=== PATIENT | male | born 1975 | race Hispanic/Latino ===

== ENCOUNTER 2021-01-29 13:37 | Outpatient (CLI) | payer OTHER, SELFPAY ==
--- NOTE | ~2021-01-29 | XR_ITS ---
EXAMINATION: XR hand LT 2V INDICATION: Left hand pain TECHNIQUE: Two views of the left hand are obtained. COMPARISON: None available FINDINGS: There is mild osteoarthritis at the first carpometacarpal joint. No fracture is identified. The soft tissues are unremarkable. IMPRESSION: 1. Mild osteoarthritis without acute findings. Reviewed, dictated and finalized at location B. ER GRIND TOOL TECHNICIAN
--- NOTE | ~2021-01-29 | XR_ITS ---
EXAMINATION: XR hand RT 2V INDICATION: Right hand pain TECHNIQUE: Two views of the right hand are obtained. COMPARISON: None available FINDINGS: There is mild osteoarthritis in the carpals at the first carpometacarpal joint. The soft ti ssues are unremarkable. There is no fracture. IMPRESSION: 1. Mild osteoarthritis at the wrist that acute findings. Reviewed, dictated and finalized at location B. INSULATOR HELPER
--- NOTE | ~2021-01-29 | XR_ITS ---
XR knee RT 3V 01/29/2021 14:00 Indication: Right knee pain Procedure: 3 views right knee Comparison: No prior studies for comparison. Findings: There is moderate osteoarthritis of the knee. There is chondrocalcinosis. There are degener ative subchondral cyst at the tibial plateaus. Impression: 1: Moderate osteoarthritis of the right knee. Reviewed, dictated and finalized at location A. NG MAKER Impression: 1: Moderate osteoarthritis of the right knee.
== END 2021-01-29 13:38 | disposition home or self-care (01) ==
PROVIDERS: PCP Family Medicine; Visit Provider Nurse Practitioner Family
DX: M79.644 Pain in right finger(s) (principal); M79.645 Pain in left finger(s); M25.561 Pain in right knee; M19.042 Primary osteoarthritis, left hand; M19.041 Primary osteoarthritis, right hand; M17.11 Unilateral primary osteoarthritis, right knee
CPT/HCPCS: 73120; 73562

== ENCOUNTER 2023-01-21 07:00 | Outpatient (NON) | payer OTHER, SELFPAY | END 2023-01-21 07:01 | disposition home or self-care (01) | PROVIDERS: PCP Family Medicine; Visit Provider Plastic Surgery | DX: L98.0 Pyogenic granuloma (principal) | CPT/HCPCS: 88304 ==

== ENCOUNTER 2023-01-21 09:40 | Day surgery (SDC) | payer OTHER, SELFPAY ==
[2023-01-19 11:45] VITALS: BMI 38.7
[2023-01-19 13:38] VITALS: BMI 38.8
[2023-01-21 10:49] VITALS: BP 145/102; PULSE 50; RESP 20; TEMP 36.9; O2SAT 100
--- NOTE | 2023-01-21 10:51 | WPDANESEPPF ---
Anes - Initial Pre Proc Eval Procedure: Operation Date: 01/21/23 12:00 Proposed Procedures p Right Palmar Mass Excision - Arjun Galindo MD Date/Time: 01/21/23 10:51 Surgeon: Arjun Galindo MD Pre Op Diagnosis: Pyogenic Granuloma Patient Data Age: 47 Gender: M Height: 1.91 m Weight: 142.7 kg Last Vital Signs Temp 36.9 C 01/21/23 10:49 Pulse 50 L 01/21/23 10:49 Resp 20 01/21/23 10:49 BP 145/102 H 01/21/23 10:49 Pulse Ox 100 01/21/23 10:49 O2 Del Method Room Air 01/21/23 10:49 Allergies Allergy/AdvReac Type Severity Reaction Status Date / Time No Known Allergies Allergy Verified 01/21/23 10:40 Home Medications Medication Instructions Recorded Confirmed Type No Home Medications 01/19/23 01/21/23 History Patient hx anesthesia problems: none Family hx anesthesia problems: none Results Review: All pre-operative results and documents have been reviewed as part of the pre-operative evaluation. FORMERLY [facility], [facility] Past Medical History Medical History IFG (impaired fasting glucose) Family History Family History Father Hypertension Social History Social History (Updated 01/05/23 @ 13:46 by Orin Villarreal MA) Smoking status: Never smoker Second hand tobacco smoke exposure: No Alcohol intake: current Alcohol use details: socially Substance use: never Substance use type: does not use Lack of Transportation: No Lack of Food: Never True Current Housing: I Have Housing Concerned About Future Housing: No Difficulty Paying Gas/Electric Bills: No Difficulty Paying for Meds: No Currently Unemployed: No Education: Bachelor's Degree Difficulty w/ Childcare or Family Care: No Living arrangements: with family Occupation/Education: occupation Gender identity (if verbalized by the patient): Male Spiritual care concerns: No Anes - Eval Final PreProcedure Day of Procedure 01/21/23 10:51 Patient weight: obese Heart: regular rate and rhythm Lungs: clear to auscultation Airway: Mallampati scale class II Neurological: alert and oriented Last oral intake: >/= 8 hours ASA classification: II Emergent: no Anesthetic plan: proceed Anesthesia type and monitoring: general GIVS and standard monitoring Results Review: All pre-operative results and documents have been reviewed as part of the pre-operative evaluation. Informed Consent: The patient's anesthetic plan and its attendant risks and benefits were discussed with the patient/family/POA. Questions were solicited and answers provided to the satisfaction of the patient/family/POA.
[2023-01-21] MEDS: LACTATED RINGERS 1,000 ML 30 ML IV CONT (11:19)
--- NOTE | 2023-01-21 11:37 | WPDHPUPDATE1 ---
History and Physical Update Update Date/Time: 01/21/23 11:37 Patient seen and examined in pre-operative holding area. No interval change in medical history or symptoms. Continues to desire to proceed with right palmar mass excision . Reviewed procedure, post-op expectations and risks including but not limited to bleeding, infection, injury to tendon/nerve/vessel, decreased hand function, recurrence, stiffness, RSD, no change or worsening of symptoms. Patient stated understanding and signed the consent form wishing to proceed.
--- NOTE | 2023-01-21 11:38 | W.PM.PROC2 ---
Procedure Note - Detailed Date of Procedure 01/21/23 Pre-op Diagnosis right palmar mass Post-op Diagnosis Same Procedure Performed excision right palmar mass Surgeon Arjun Galindo MD Anesthesia MAC Description of Procedure Pt. seen and examined in pre-op area. marked and consent signed. Taken back to OR on stretcher in supine position. Time out performed with anesthesia, surgeon and staff agreeing on patient's name, site and surgery to be performed. antibiotics were given IV. a tourniquet was placed on the right upper extremity. After anesthesia administered sedation I injected 6cc 1%Lido with epi and 0.5%marcaine plain for local. The right upper extremity was prepped and draped in the ususal sterile faschion. I exanguinated the Right upper extremity proximal to the mass with an esmarch and tourniquet inflated to 250mmHg. I proceeded with making an elliptical incision around the affected skin and open wound overlying the mass in addition to excess skin for dog ears and to achieve flat closure. This was done through skin and dermis with a 15 blade scalpel. I used littler scissors to dissect through the subq tissue and palmar fascia dissection aroud the mass that appeared to originate below the palmar fascia. Bipolar cautery was used to transect the mass at its base though no major feeding vessel was identified. I irrigated with normal saline, undermined the skin flaps to minimize tension at wound edges and closed the incision with 4-0 chromic. A dressing of xeroform, 4x4, geovanny, and bryon was applied after the tourniquet was let down noting the hand was warm and well perfused. The patient was awaken from anesthesia and transferred to the recovery room in stable condition. Compications: none EBL: 2cc Dispostion: patient tolerated well and will be discharged home in stable condition [facility] [place] Surgery - Charge Forward: Surgery Billing ([id number])
[2023-01-21] MEDS: LIDOCAINE HCL 1% LOCAL INJ 20 ML VIAL 5 ML INFILTRATE (11:54)
[2023-01-21] MEDS: BUPivacaine HCL 0.5% 10 ML AMP INFILTRATE (11:54)
[2023-01-21] MEDS: ceFAZolin SODIUM 3 GM/30 ML SW SYRINGE IV PUSH (11:54)
[2023-01-21 12:19] VITALS: BP 120/63; PULSE 49; RESP 18; O2SAT 96
[2023-01-21 12:30] VITALS: BP 122/79; PULSE 47; RESP 18; O2SAT 96
[2023-01-21 13:00] VITALS: BP 127/78; PULSE 48; RESP 20; O2SAT 100
== END 2023-01-21 13:20 | disposition home or self-care (01) ==
PROVIDERS: PCP Family Medicine; Visit Provider Plastic Surgery
PROC: (CPT 26111; principal; 2023-01-21 12:00)
DX: D49.2 Neoplasm of unspecified behavior of bone, soft tissue, and skin (principal)
CPT/HCPCS: 26111

== ENCOUNTER 2024-01-21 15:03 | Outpatient (CLI) | payer OTHER, SELFPAY ==
--- NOTE | ~2024-01-21 | MR_ITS ---
MRI of the right foot CLINICAL HISTORY: Flexion deformity TECHNIQUE: Axial proton-density, STIR, and proton-density fat-sat images, sagittal T1-weighted and ST IR images, and coronal T1-weighted and STIR images were performed. FINDINGS: No acute fracture seen. There is hyperextension at the second, third, fourth, and fifth PIP joints, with flexion at the corresponding PIP joints. Findings hammertoe deformities of the second t hrough fifth digits. There is degenerative change at the second metatarsophalangeal joint, with subch ondral cystic change in the second metatarsal head. Small joint effusion present at the first MTP victoria nt, with mild osteophytic change. There are additional scattered minimal degenerative change of the i nterphalangeal joints of the toes otherwise. Flexor and extensor tendons appear intact otherwise. There is probable intermetatarsal bursitis at th e third interspace. No neuroma evident. Visualized plantar fascia intact. IMPRESSION: Probable hammertoe deformities of second through fifth digits with associated mild degenerative maurer es, worst at the second MTP joint, as detailed above. Probable mild intermetatarsal bursitis at the third interspace. Reviewed, dictated and finalized at location M. DINATOR INTEGRATED MARKETING IMPRESSION: Probable hammertoe deformities of second through fifth digits with associated m ild degenerative changes, worst at the second MTP joint, as detailed above. Probable mild intermetatarsal bursitis at the third interspace.
== END 2024-01-21 15:04 | disposition home or self-care (01) ==
LOC: MICIMG 15:03
PROVIDERS: PCP Family Medicine; Visit Provider Podiatrist Foot & Ankle Surgery
DX: M21.271 Flexion deformity, right ankle and toes (principal); M66.371 Spontaneous rupture of flexor tendons, right ankle and foot; R93.6 Abnormal findings on diagnostic imaging of limbs
CPT/HCPCS: 73718

== ENCOUNTER 2024-02-04 13:57 | Outpatient (CLI) | payer OTHER, SELFPAY ==
--- NOTE | 2024-02-04 | ECG_ITS ---
Test Date: 2024-02-04 14:29:05 Measurements Intervals [place] Rate: 48 P: 50 NE: 189 QRS: 14 QRSD: 123 T: 5 QT: 434 QTc: 391 Interpretive Statements SINUS BRADYCARDIA MINIMAL Q WAVES- HIGH LATERAL LEADS ABNORMAL ECG Electronically Signed On 02-04-2024 14:30:03 OIL TREATER by Arik Carranza D.O.
== END 2024-02-04 13:58 | disposition home or self-care (01) ==
LOC: ANHCARD 13:59
PROVIDERS: PCP Family Medicine; Visit Provider Podiatrist Foot & Ankle Surgery
DX: Z01.818 Encounter for other preprocedural examination (principal); R94.31 Abnormal electrocardiogram [ECG] [EKG]
CPT/HCPCS: 93005